=== PATIENT | female | born 1965 | race Caucasian/White ===

== ENCOUNTER 2016-09-20 08:55 | Emergency (ER) | payer BC ==
[2016-09-20 09:45] VITALS: BP 94/56
--- NOTE | 2016-09-20 10:31 | UC ---
Lower Extremity/Ankle HPI - HPI Summary HPI Summary: hit right 5th toe on a wooden pallet 3 days ago - History of Current Complaint Chief Complaint: UCLowerExtremity Stated Complaint: SMALL TOE INJURY Time Seen by Provider: 09/20/16 10:06 Hx Obtained From: Patient Hx Last Menstrual Period: April 2012 ?: No Onset/Duration: Sudden Onset, Lasting Days - 3, Still Present Severity Initially: Mild Severity Currently: Mild Aggravating Factor(s): Standing, Ambulation Alleviating Factor(s): Rest, Elevation, OTC Meds Able to Bear Weight: Yes - Allergies/Home Medications Allergies/Adverse Reactions: Allergies Allergy/AdvReac Type Severity Reaction Status Date / Time Penicillins Allergy Intermediate Rash Verified 10/29/12 21:47 Sulfamethoxazole Allergy Intermediate Rash Verified 10/29/12 21:47 w/Trimethoprim [From Bactrim] Home Medications: Home Medications Calcium Carbonate-Vitamin D [Calcium 600 + D] 1 tab PO BID 09/20/16 [History] Multiple Vitamin [Multi Vitamin] 1 tab PO DAILY 09/20/16 [History Confirmed 10/02] PMH/Surg Hx/FS Hx/Imm Hx Previously Healthy: No Endocrine History Of: Reports: Thyroid Disease - Hypothyroid, not on meds now Denies: Diabetes Cardiovascular History Of: Denies: Cardiac Disorders, Hypertension Respiratory History Of: Reports: Asthma Denies: COPD GI/ History Of: Denies: Ulcer Cancer History Of: Denies: Breast Cancer - Surgical History Surgical History: Yes Surgery Procedure, Year, and Place: Birthmark removed from back, melanoma removed from left forearm, 2 c sections last one 03/2003. Imperforate anus at . - Family History Known Family History: Positive: None - Social History Occupation: Employed Full-time Lives: With Family Alcohol Use: Weekly Alcohol Amount: 1-2 per week Substance Use Type: None Smoking Status (MU): Never Smoked Tobacco - Immunization History Most Recent Influenza Vaccination: 2016/2016 season Review of Systems Constitutional: Negative Skin: Negative Eyes: Negative ENT: Negative Respiratory: Negative Cardiovascular: Negative Gastrointestinal: Negative Genitourinary: Negative Motor: Negative Neurovascular: Negative Musculoskeletal: Negative, Arthralgia - right 5th toe, Edema Neurological: Negative Psychological: Negative All Other Systems Reviewed And Are Negative: Yes Physical Exam Triage Information Reviewed: Yes Appearance: Well-Appearing, No Pain Distress, Well-Nourished Vital Signs: Initial Vital Signs Temp 98.1 F 09/20/16 09:40 Pulse 68 09/20/16 09:40 Resp 18 09/20/16 09:40 BP 94/56 09/20/16 09:40 Pulse Ox 100 09/20/16 09:40 Vital Signs Reviewed: Yes Eye Exam: Normal Eyes: Positive: Conjunctiva Clear ENT Exam: Normal ENT: Positive: Normal ENT inspection, Hearing grossly normal. Negative: Nasal congestion, Nasal drainage, Trismus, Muffled/hoarse voice Dental Exam: Normal Neck exam: Normal Neck: Positive: Supple, Nontender, No Lymphadenopathy Respiratory Exam: Normal Respiratory: Positive: Chest non-tender, Lungs clear, Normal breath sounds, No respiratory distress, No accessory muscle use Cardiovascular Exam: Normal Cardiovascular: Positive: RRR, No Murmur, Pulses Normal, Brisk Capillary Refill Musculoskeletal Exam: Normal Musculoskeletal: Positive: Strength Intact, ROM Limited @ - rith 5th toe, Edema @ - right 5th toe Neurological Exam: Normal Neurological: Positive: Alert, Muscle Tone Normal Psychological Exam: Normal Psychological: Positive: Normal Response To Family, Age Appropriate Behavior Skin Exam: Normal Diagnostics - Radiology No standard instances Xray Interpretation: No Acute Changes Radiology Interpretation Completed By: ED Physician Lower Extremity Course/Dx - Course Course Of Treatment: alejandra tape post op shoe, rice follow prn - Differential Dx/Diagnosis Differential Diagnosis/HQI/PQRI: Contusion, Fracture (Closed), Sprain, Strain Provider Diagnoses: right 5th toe contusion Discharge - Discharge Plan Condition: Stable Disposition: HOME Patient Education Materials: Ibuprofen (By mouth), Foot Contusion (ED), RICE Therapy (ED) Referrals: Aleja Robles MD [Primary Care Provider] - If Needed
--- NOTE | 2016-09-20 10:46 | RAD ---
Indication: Fifth toe injury. 3 views of the fifth toe demonstrates suggestion of a nondisplaced fracture at the base of the proximal phalanx of the fifth digit. IMPRESSION: Likely undisplaced fracture base of the proximal phalanx of the fifth digit.
--- NOTE | 2016-09-22 11:07 | UC ---
Progress - Progress Note Progress Note: call made to patient to update radiology reading to a non-displaced fracture 5th toe (R). Pt received correct treatment at [facility] visit and encouraged follow up with Dr. Michael---Called all numbers on patients chart message left on [employer]
== END 2016-09-20 10:55 | disposition home or self-care (01) ==
LOC: UCEAST 08:55
DX: S92.504A Nondisplaced unspecified fracture of right lesser toe(s), initial encounter for closed fracture (principal); W22.09XA Striking against other stationary object, initial encounter; Y93.9 Activity, unspecified; Y99.9 Unspecified external cause status; Z88.0 Allergy status to penicillin; Z88.2 Allergy status to sulfonamides
CPT/HCPCS: 99212; G0463